=== PATIENT | male | born 1990 | race Caucasian/White ===

== ENCOUNTER 2021-06-09 14:10 | Emergency (ER) | payer OTHER ==
[~2021-06-09] VITALS: Ht 190.5 cm; Wt 101.8 kg
--- NOTE | 2021-06-09 14:50 | NUR ---
PT CAME IN [place] RIGHT TESTICULAR PAIN AND SWELLING. PT REPORTS THAT LAST WEEK HE ACCIDENTLY STRUCK HIMSELF IN THE TESTICLE WITH HIS BELT AND HAS FELT A PAIN EVER SINCE. PT RESTING IN [facility]. PROVIDED UA. PROVIDER IS BEDSIDE FOR ASSESSMENT
--- NOTE | 2021-06-09 15:43 | NUR ---
US RESULTS BACK, PT FOR RECHECK.
--- NOTE | 2021-06-09 16:15 | NUR ---
URINE COLLECTED/SENT TO LAB.
[2021-06-09 16:21] LABS: MICROSCOPIC NOT IND
--- NOTE | 2021-06-09 16:27 | NUR ---
URINE RESULTS BACK, PT FOR RECHECK.
[2021-06-09 17:43] VITALS: BP 98/59
== END 2021-06-09 17:45 | disposition home or self-care (01) ==
LOC: ED 17:20
DX: N50.82 Scrotal pain (principal); N50.811 Right testicular pain
CPT/HCPCS: 76870; 81003; 87491; 87591; 99284